=== PATIENT | male | born 1980 | race Caucasian/White ===

== ENCOUNTER 2016-12-14 00:31 | Emergency (ER) | payer SELFPAY ==
[~2016-12-14] VITALS: Ht 172.7 cm; Wt 68.0 kg
[~2016-12-14 00:31] MED LIST: IBUPROFEN800 M1 PO; IBUPROFEN800 MG PO; POLYTRIM O200 GTT/BO TOP
[2016-12-14] MEDS ORDERED: ZITHROMAX250 M2 PO (01:37)
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
[2016-12-14 01:50] VITALS: BP 126/72
== END 2016-12-14 01:50 ==
LOC: ERH 00:31
DX: R59.0 Localized enlarged lymph nodes (principal)
CPT/HCPCS: 81003